=== PATIENT | female | born 1980 | race Caucasian/White ===

== ENCOUNTER 2020-10-04 12:25 | Emergency (ER) | payer SELFPAY ==
[~2020-10-04] VITALS: Ht 175.3 cm; Wt 62.3 kg
--- NOTE | 2020-10-04 12:44 | NUR ---
C/O RLQ PAIN, STARTED LMP 10/01/20. PT STATES RLQ PAIN WITH HER MENSTRUAL PERIOD WORSE OVER FEW MONTHS.
[2020-10-04] MEDS ORDERED: ONDANSETRON 2MG/ML, 2ML ONE (13:16)
[2020-10-04] MEDS ORDERED: KETOROLAC 30 MG/1 ML ONE (13:16)
[2020-10-04] MEDS ORDERED: MORPHINE SULFATE 4 MG/ML, 1ML IVPush PRN (13:30)
[2020-10-04] MEDS ORDERED: KETOROLAC 30 MG/1 ML IVPush ONE (13:30)
[2020-10-04] MEDS ORDERED: ONDANSETRON 2MG/ML, 2ML IVPush ONE (13:30)
[2020-10-04 13:39] LABS: BASOPHILS % (AUTO) 0 % (0-1); EOSINOPHILS % (AUTO) 0 % (1-7); LYMPHOCYTES % (AUTO) 16 % (22-44); MEAN CORPUSCULAR HEMOGLOBIN 24.6 pg (27.0-34.8); MEAN CORPUSCULAR HGB CONC 31.7 g/dL (32.4-35.8); MEAN PLATELET VOLUME 8.3 fL (7.4-10.4); MONOCYTES % (AUTO) 9 % (2-9); NEUTROPHILS % (AUTO) 75 % (42-75); PLATELET COUNT 242 x10^3/uL (130-400); RED BLOOD COUNT 4.19 x10^6/uL (3.82-5.3); RED CELL DISTRIBUTION WIDTH 24.9 % (9.6-15.2)
[2020-10-04 13:40] LABS: MD NO
--- NOTE | 2020-10-04 13:40 | NUR ---
BREAK RN: PT IN CT.
[2020-10-04 13:52] LABS: ANION GAP 10 mmol/L (5-15); CALCIUM 8.6 mg/dL (8.5-10.1); CHLORIDE 108 mmol/L (98-107)
[2020-10-04 13:57] LABS: ALANINE AMINOTRANSFERASE 17 U/L (12-78); ALKALINE PHOSPHATASE 72 U/L (45-117); BILIRUBIN,TOTAL 0.5 mg/dL (0.2-1.0); CREATININE 0.88 mg/dL (0.55-1.02); TOTAL PROTEIN 7.9 g/dL (6.4-8.2)
--- NOTE | 2020-10-04 14:15 | NUR ---
ASSUMED CARE OF PT FROM ESTHER THOMPSON. PT RESTING IN [place], SPOUSE AT BEDSIDE, MONITORING IN PLACE, LIEN AT THIS TIME, [place].
[2020-10-04 15:21] VITALS: BP 124/64
== END 2020-10-04 15:46 | disposition home or self-care (01) ==
LOC: ED 15:06
DX: D25.1 Intramural leiomyoma of uterus (principal); N94.6 Dysmenorrhea, unspecified; R11.2 Nausea with vomiting, unspecified; Z90.721 Acquired absence of ovaries, unilateral
CPT/HCPCS: 36415; 76830; 80053; 84702; 85025; 96374; 96375; 99284; J1885; J2405